=== PATIENT | female | born 1955 | race Caucasian/White ===

== ENCOUNTER 2017-06-21 10:47 | Day surgery (SDC) | payer BC ==
[2017-06-21] MEDS ORDERED: LIDOCAINE HCL 1% MPF SOL ONE (11:36)
[2017-06-21] MEDS ORDERED: FENTANYL 100MCG/2ML SOL ONE (12:02)
[2017-06-21] MEDS ORDERED: MIDAZOLAM 2 MG/2 ML SOL ONE (12:02)
[2017-06-21] MEDS ORDERED: PROPOFOL 500 MG/50 ML EMU IV ONE (12:03)
[2017-06-21] MEDS ORDERED: ONDANSETRON HCL 4 MG/2 ML SOL ONE (12:03)
[2017-06-21] MEDS: BUPIVACAINE HCL 0.5% MPF 10 ML SOL ONE ×3 (12:30→13:12)
[2017-06-21 14:05] VITALS: RESP 18; TEMP 97.4
[2017-06-21 14:57] VITALS: BP 122/72; PULSE 70; O2SAT 99
== END 2017-06-21 14:54 | disposition home or self-care (01) ==
LOC: SURG 10:47
PROVIDERS: ATTEND Podiatrist
DX: M77.31 Calcaneal spur, right foot (principal)
CPT/HCPCS: J2250; J2405; J3010; L3260; J2001; J2704

== ENCOUNTER 2018-03-13 10:03 | Emergency (ER) | payer BC, OTHER ==
[2018-03-13 11:31] VITALS: BP 139/76; PULSE 83; RESP 16; TEMP 97.9; O2SAT 96
== END 2018-03-13 12:27 | disposition home or self-care (01) | DRG 153 ==
LOC: ED 10:03
DX: H66.91 Otitis media, unspecified, right ear (principal); J02.9 Acute pharyngitis, unspecified
CPT/HCPCS: 87430; 99282